=== PATIENT | female | born 1945 | race Caucasian/White ===

== ENCOUNTER 2016-09-01 08:49 | Observation (INO) | payer OTHER ==
--- NOTE | 2016-09-01 09:02 | CPEKG ---
Heart Rate: 72 RR Interval: 833 P-R Interval: 176 QRSD Interval: 90 QT Interval: 432 QTC Interval: 473 P [place]: 75 QRS [place]: -3 T Wave [place]: 23 EKG Severity - NORMAL ECG - EKG Impression: SINUS RHYTHM Electronically Signed By: Pritesh Peters 01-Sep-2016 16:46:21
[2016-09-01] MEDS ORDERED: ASPIRIN 81 MG CHEWABLE TAB PO ONE (09:20)
[2016-09-01 09:25] LABS: % IMMATURE GRANULYOCYTES 0.5 % (0.0-1.1); ABSOLUTE IMMATURE GRANULOCYTES 0.05 10^3/uL (0.00-0.10); ADD DIFF? NO; ADD MORPH? NO; ADD SCAN? NO; ATYPICAL LYMPHOCYTE FLAG 10 (0-99); FRAGMENT RBC FLAG 0 (0-99); HEMATOCRIT 37.3 % (38.0-47.0); LEFT SHIFT FLG 0 (0-99); LIPEMIA HEMOLYSIS FLAG 90 (0-99); MEAN CELL HEMOGLOBIN CONCENTR. 34.9 g/dL (32.4-36.7); MEAN CELL VOLUME 97.6 fL (81.5-99.8); MEAN PLATELET VOLUME 9.6 fL (8.7-11.7); PLATELET CLUMPS FLAG 0 (0-99); PLATELET COUNT 258 10^3/uL (150-400); RED BLOOD CELL COUNT 3.82 10^6/uL (4.18-5.33); RED CELL DISTRIBUTION WIDTH 12.3 % (11.5-15.2)
--- NOTE | 2016-09-01 09:27 | EDPHY ---
H & P Stated Complaint: fell down stairs Thur - inc. chest tightness/sob since then Time Seen by Provider: 09/01/16 09:05 HPI/ROS: CHIEF COMPLAINT: Chest pain HISTORY OF PRESENT ILLNESS: This is a 70-year-old female with history of hypertension who had a mechanical fall 2 days ago. She was carrying a load of laundry up stairs, lost her balance and fell forward, striking her right side. She then slid down the steps. She is not sure if she hit her head or not. There was no loss of consciousness. She was not initially aware of any injuries but the following morning, yesterday morning, she had right arm pain while attempting to elevate her arm over her head. She also noticed various bruises. Last evening she developed left arm aching pain near her shoulder accompanied by bilateral upper chest pain. The bilateral upper chest pain persists. She also reports some pain across the upper back. She has pain when taking a deep breath. She had one bout of nausea, no vomiting last night. She has not had diaphoresis. She has no known history of coronary artery disease. No family history of coronary artery disease. She notes increased belching today. No abdominal pain. She denies numbness, weakness, bowel or bladder problems. REVIEW OF SYSTEMS: A ten point review of systems was performed and is negative with the exception of the items mentioned in the HPI. Source: Patient Exam Limitations: No limitations - Personal History Current Tetanus Diphtheria and Acellular Pertussis (TDAP): Yes - Medical/Surgical History Hx Asthma: No Hx Chronic Respiratory Disease: No Hx Diabetes: No Hx Cardiac Disease: No Hx Renal Disease: No Hx Cirrhosis: No Hx Alcoholism: No Hx HIV/AIDS: No Hx Splenectomy or Spleen Trauma: No Other PMH: 1. HTN. 2. Reactive airway disease for which she takes medication as needed parentheses rarely). 3. 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 She is accompanied by her daughter today. - Physical Exam Exam: General Appearance: Alert. Vital signs reviewed. Blood pressure 169/110. Eyes: Pupils equal and round, no conjunctival injection, no discharge. Anicteric. ENT, Mouth: Mucous membranes are moist, no oropharyngeal erythema or edema. Neck: No lymphadenopathy, supple. Respiratory: Lungs are clear to auscultation; no wheezes, rales, or rhonchi. Cardiovascular: Regular rate and rhythm; no murmur, rub, or gallop. Gastrointestinal: Abdomen is soft and nontender, no masses or organomegaly, bowel sounds normal. Skin: Warm and dry, no rashes on exposed skin, normal color. Yellow bruising on the anterior left tibial, left medial malleolus, right hip, and left shoulder. Back: Nontender to palpation over the thoracolumbar spine. No CVAT. Extremities: No lower extremity edema, no calf tenderness or swelling. Full active range of motion of both shoulders. Full active range of motion right hip. Full active range of motion left ankle. Neurological: Alert and oriented. Moving all four extremities easily and equally. Facial expressions symmetric. Strength is 5 over 5 bilaterally with testing of all major motor groups. Sensation is intact to light touch over all 4 extremities. Psychiatric: Normal affect. Constitutional: Initial Vital Signs Temperature (C) 36.6 C 09/01/16 09:05 Heart Rate 70 09/01/16 09:05 Respiratory Rate 20 09/01/16 09:05 Blood Pressure 157/100 H 09/01/16 09:05 O2 Sat (%) 97 09/01/16 09:05 O2 Delivery Mode Room Air Allergies/Adverse Reactions: No Known Allergies Allergy (Unverified 01/23/14 17:04) Home Medications: Medication Instructions Recorded Benazepril HCl [Lotensin (*)] 40 mg PO DAILY 09/01/16 Spironolactone [Aldactone 25 MG 50 mg PO DAILY 09/01/16 (*)] Medical Decision Making - Diagnostics EKG Interpretation: 12 lead EKG is interpreted in Trace master View by emergency department physician. Sinus rhythm with no acute ischemic changes. A 2nd EKG was obtained at 9:54 a.m.. Shows sinus rhythm with no acute ischemic changes. Imaging Results: Imaging Impressions Chest X-Ray 09/01/16 09:20 Impression: Left basilar atelectasis/scarring. Imaging: I viewed and interpreted images myself ED Course/Re-evaluation: Patient with fall 2 days ago, striking primarily her left side. She has scattered bruises as result of this fall. Last evening, over 24 hours from her fall, she developed left shoulder aching pain followed by bilateral upper chest pain. She also notes that she has pain when she takes a deep breath. She has a history of hypertension, known known history of coronary artery disease. Her EKG is without ischemic changes. However, her troponin is elevated at 2.03. She continues with chest pain here in the emergency department. She has received aspirin 324 mg. She is being given sublingual nitroglycerin. I have spoken with Dr. vlad Romo and with hospitalist service. She will be admitted to the hospitalist service and will remain NPO with the thought that she might require cardiac catheterization later in the day. To her knowledge, she did not strike her chest when she fell. It is possible that she has a cardiac contusion, but this seems less likely given that her chest pain developed over 24 hours from the time of her fall. I do not find evidence of an infectious process such as pneumonia. On chest x-ray there is no obvious rib injury or pneumothorax. She was re-evaluated at 10:10 a.m., after taking 1 sublingual nitroglycerin. The chest discomfort that she was feeling is not gone, but it is markedly improved. 2nd sublingual nitroglycerin will be given. She is being transferred to [facility] by ambulance. Differential Diagnosis: Chest pain including but not limited to rib injury/fracture, pneumothorax, myocardial ischemia, pulmonary embolus, chest wall pain, pleural inflammation and pulmonary infectious causes. - Data Points Laboratory Results: Laboratory Results 09/01/16 09:13 09/01/16 09:13 09/01/16 09/01/16 09/01/16 09:13 09:13 09:13 WBC 9.57 10^3/uL H 10^3/uL (3.80-9.50) RBC 3.82 10^6/uL L 10^6/uL (4.18-5.33) Hgb 13.0 g/dL g/dL (12.6-16.3) Hct 37.3 % L % (38.0-47.0) MCV 97.6 fL fL (81.5-99.8) MCH 34.0 pg pg (27.9-34.1) MCHC 34.9 g/dL g/dL (32.4-36.7) RDW 12.3 % % (11.5-15.2) Plt Count 258 10^3/uL 10^3/uL (150-400) MPV 9.6 fL fL (8.7-11.7) Neut % (Auto) 58.7 % % (39.3-74.2) Lymph % (Auto) 29.6 % % (15.0-45.0) [place]oca % (Auto) 9.1 % % (4.5-13.0) Eos % (Auto) 1.7 % % (0.6-7.6) Baso % (Auto) 0.4 % % (0.3-1.7) Nucleat RBC Rel Count 0.0 % % (0.0-0.2) Absolute Neuts (auto) 5.62 10^3/uL 10^3/uL (1.70-6.50) Absolute Lymphs (auto) 2.83 10^3/uL 10^3/uL (1.00-3.00) Absolute Monos (auto) 0.87 10^3/uL H 10^3/uL (0.30-0.80) Absolute Eos (auto) 0.16 10^3/uL 10^3/uL (0.03-0.40) Absolute Basos (auto) 0.04 10^3/uL 10^3/uL (0.02-0.10) Absolute Nucleated RBC 0.00 10^3/uL 10^3/uL (0-0.01) Immature Gran % 0.5 % % (0.0-1.1) Immature Gran # 0.05 10^3/uL 10^3/uL (0.00-0.10) D-Dimer 0.48 ug/mLFEU ug/mLFEU (0.00-0.50) Sodium 140 mEq/L mEq/L (134-144) Potassium 3.8 mEq/L mEq/L (3.5-5.2) Chloride 105 mEq/L mEq/L (97-110) Carbon Dioxide 17 mEq/l L mEq/l (22-31) Anion Gap 18 mEq/L H mEq/L (8-16) BUN 15 mg/dL mg/dL (7-23) Creatinine 0.7 mg/dL mg/dL (0.6-1.0) Estimated GFR > 60 Glucose 100 mg/dL mg/dL (70-100) Calcium 9.4 mg/dL mg/dL (8.5-10.4) Troponin I 2.030 ng/mL H ng/mL (0-0.034) Medications Given: Discontinued Medications Aspirin (Aspirin) 324 mg PO EDNOW ONE Stop: 09/01/16 09:21 Last Admin: 09/01/16 09:40 Dose: 324 mg Nitroglycerin (Nitrostat) 0.4 mg SL EDNOW ONE Stop: 09/01/16 09:51 Last Admin: 09/01/16 09:58 Dose: 0.4 mg Departure - Departure Disposition: [facility] Acute Clinical Impression: Chest pain Qualifiers: Chest pain type: precordial pain Qualified Code(s): R07.2 - Precordial pain Condition: Fair
[2016-09-01 09:32] LABS: ANION GAP 18 mEq/L (8-16); CALCIUM 9.4 mg/dL (8.5-10.4); CARBON DIOXIDE 17 mEq/l (22-31); CHLORIDE 105 mEq/L (97-110); CREATININE 0.7 mg/dL (0.6-1.0); GLOMERULAR FILTRATION RATE > 60; GLUCOSE 100 mg/dL (70-100); POTASSIUM 3.8 mEq/L (3.5-5.2); SODIUM 140 mEq/L (134-144)
[2016-09-01] MEDS ORDERED: NITROGLYCERIN 0.4 MG BTL SL ONE (09:50)
--- NOTE | 2016-09-01 09:57 | CPEKG ---
Heart Rate: 76 RR Interval: 789 P-R Interval: 188 QRSD Interval: 88 QT Interval: 428 QTC Interval: 482 P [place]: 77 QRS [place]: -19 T Wave [place]: 40 EKG Severity - OTHERWISE NORMAL ECG - EKG Impression: SINUS RHYTHM EKG Impression: BORDERLINE LEFT AXIS DEVIATION Electronically Signed By: July Win 01-Sep-2016 16:04:36
[2016-09-01] MEDS ORDERED: fentaNYL 100 MCG/2 ML INJ ONE ×2 (11:26→12:29)
[2016-09-01] MEDS ORDERED: MIDAZOLAM 2 MG/2 ML VIAL ONE ×2 (11:26→12:29)
[2016-09-01] MEDS ORDERED: LIDOCAINE 1% 300 MG/30 ML SDV ONE (11:26)
[2016-09-01] MEDS ORDERED: IOPAMIDOL (ISOVUE-370) 150 ML BTL IV ONE (11:27)
[2016-09-01] MEDS ORDERED: BIVALIRUDIN 250 MG/5 ML VIAL IV ONE ×2 (12:31)
[2016-09-01] MEDS ORDERED: ADENOSINE 90 MG/30 ML VIAL IV ONE (12:33)
[2016-09-01] MEDS ORDERED: TEMAZEPAM 15 MG CAP PO PRN (13:22)
[2016-09-01] MEDS ORDERED: NITROGLYCERIN 0.4 MG BTL SL PRN (13:22)
[2016-09-01] MEDS ORDERED: CLOPIDOGREL BISULFATE 75 MG TAB PO ONE (13:22)
[2016-09-01] MEDS ORDERED: ONDANSETRON 4 MG/2 ML VIAL IVP PRN (13:22)
[2016-09-01] MEDS ORDERED: ATROPINE SULFATE 1 MG/10 ML SYR IVP PRN (13:22)
--- NOTE | 2016-09-01 13:24 | CPIP ---
[f rep st] INVASIVE CARDIAC PROCEDURE PROCEDURES PERFORMED: 1. Left heart catheterization. 2. Left ventriculogram. 3. Right and left coronary arteriogram. COMPLICATIONS: None. CONDITION AT THE END OF STUDY: Excellent. INDICATIONS: The patient has chest tightness that is new in onset in the last 24 hours and she has a troponin that is elevated at 2.0. There are no other obvious causes for elevated troponin in this woman such as chronic renal insufficiency, trauma, obvious significant cardiac contusion type of tr auma, or pulmonary embolic disease. She gave informed consent. We went over all the risks and all the options, and she wanted to procee d. FINDINGS: 1. ANGIOGRAPHY:. a. Left main coronary artery is normal. b. Left anterior descending artery has 50% proximal stenosis. IVUS was performed. The first septa l retort loader has a 95% stenosis. It is not a big vessel. I. The diagonal branches have no significant obstructive disease. There appears to possibly be a l ittle bit of aneurysmal dilatation after the 50% LAD stenosis. II. Distal LAD is unremarkable. c. Circumflex has an intimal disease only and is a large codominant vessel. d. The right coronary artery is codominant, is a very large vessel, has excellent flow with no sign ificant obstructive disease present. 2. LEFT HEART CATHETERIZATION: Left ventricular end-diastolic pressure 18 mmHg. 3. LEFT VENTRICULOGRAM:. a. There is anterolateral and inferolateral hypokinesis in the diaphragmatic segment of the inferio r wall. b. The ejection fraction is 55%. c. No significant mitral regurgitation. ASSESSMENT: She has significant proximal left anterior descending artery disease with a significant stenosis of the first septal retort loader. She is going to be evaluated by IVUS by the interventiona l service. The patient was talking when I left the room, although under sedation. She is having no complaints and no complications. /[id number]/MODL
--- NOTE | 2016-09-01 13:48 | CPEKG ---
Heart Rate: 65 RR Interval: 923 P-R Interval: 192 QRSD Interval: 86 QT Interval: 456 QTC Interval: 475 P [place]: 72 QRS [place]: -44 T Wave [place]: 48 EKG Severity - OTHERWISE NORMAL ECG - EKG Impression: SINUS RHYTHM EKG Impression: LEFT AXIS DEVIATION Electronically Signed By: Pritesh Peters 01-Sep-2016 16:46:29
--- NOTE | 2016-09-01 13:49 | GCON ---
[f rep st] CONSULTATION CARDIOLOGY CONSULTATION CHIEF COMPLAINT: Chest pain. HISTORY OF PRESENT ILLNESS: , she was moving a pile of laundry, going upstairs, could not h old onto the rail and slipped, hit on her right side, her shoulder and her hip. Saturday, she woke up in the morning, she had trouble moving her right arm, it was very sore and her chest was sore, but at 4 o'clock Saturday night, she got a different kind of chest pain which felt like a weight was sitti ng on her chest, associated not with shortness of breath, cough, nausea, vomiting, lightheadedness, palpitations, orthopnea, PND, dyspnea on exertion, hemoptysis. She has not had this discomfort before, and it has continued Saturday evening and then this morning, a nd she came to the emergency room. It is not exertional. It comes on its own. It does not go away with rest. It goes away when it wa nts to. Discomfort can be 4/10. It does not radiate. There is no associated lightheadedness, near-syncope, nausea, sweatiness. The patient herself does not have a history of atrial arrhythmias, atrial fibrillation. No history of deep venous thrombosis, pulmonary embolism, cancer diagnosis. No history of rheumatic disease, claudication, or cerebrovascular disease. No history of hot swolle n joints, major rashes. No trauma to the head, neck, or chest, except for the 1 fall. No dysuria, frequency, or pyuria. No fever, chills, or cough. No sputum production. No upper respiratory tract symptoms. Her cardiac risk factors are negative for diabetes, obesity, hyperlipidemia, hyperuricemia, smoking, family history of premature coronary artery disease, or known coronary artery disease. FAMILY HISTORY: She has no family history of premature coronary artery disease. No history of unexplained sudden at a young age. SOCIAL HISTORY: She was born in [place], [place], and lived there until she was 18 years old. 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 She has 2 children who are both healthy. She has been a [employer] for 11 years. She has not been exercising much lately, but normally she exercises on a regular basis. She does not smoke. She does not drink significant amounts of alcohol. REVIEW OF SYSTEMS: A 12-point review of systems negative except as noted above. ALLERGIES: Review the record. MEDICATIONS: Listed in the pharmacy notes. PHYSICAL EXAMINATION: VITAL SIGNS: Blood pressure 110/70, heart rate 66, respiratory rate 12. MEAGAN NT: Pupils equal and reactive. Mucous membranes of the mouth moist. NECK: Supple. CARDIOVASCULA R: S1, S2. Soft systolic murmur, left sternal border. No diastolic murmur. No S3, S4. No rubs. PULMONARY: Rhonchi. No rales, wheezing, or dullness. ABDOMEN: Soft, nontender, without masses. EXTREMITIES: No edema, inflammation, or ulceration. Negative Homans' sign. No tenderness of the calves. SKIN: Age-related changes. NEUROLOGIC: 2 through 12 grossly normal. Motor and sensory i ntact. PSYCH: No obvious anxiety or depression. LABORATORY DATA: The patient's troponin is 2.0. Creatinine and glucose are normal. EKG is abnormal with T-wave inversion in V2. An R wave is present there. ASSESSMENT AND PLAN: 1. Elevated troponin. 2. Chest pain. 3. Trauma to the right shoulder and somewhat to the chest. The patient did have a fall. There was no syncope, no lightheadedness, no palpitations, no chest pa in at the time of the fall. Then, her chest did get sore and the next day, it was harder for her to move her arm, and shoulder was even more sore, but in the evening of the next day, she developed ch est tightness. This tightness is what we are concerned about and may represent an acute coronary sy ndrome. Her troponin is 2, and the patient would fit the criteria for non-STEMI. We will treat her very aggressively medically and bring her to the labor delivery specialist. She understands the risk of cath includes stroke, , limb loss, renal failure, myocardial infarc tion, infection, bleeding, etc. She has been explained by me on 2 occasions all the options which i nclude getting a second opinion, observation, hospitalization, noninvasive testing, medical therapy, doing nothing, nontraditional therapy, etc., and she understands her choices and options, and wishe s to proceed and accepts the risks that occurred to 3 in 1000 people. She certainly may have an acute coronary syndrome with non-STEMI. Her D-dimer is normal, and she mckinney s no symptoms of would go along with a pulmonary embolism. However, pulmonary embolic disease is 1 of the noncardiac causes for elevated troponin. That makes it very worthy to have checked D-dimer a nd make sure everything is okay there. There is nothing to suggest chronic renal insufficiency whic h is another reason for an elevated troponin. The patient could have had an elevated troponin from the trauma of her chest. She could have had a small cardiac contusion, but that is not necessarily the case from the history. So, we will proceed with angiography. Will watch her very closely and keep her in the hospital over night no matter what we find. All her questions have been answered, and we will monitor her closely. If we find no obvious cardoza ry artery disease, we can do an amylase, lipase, and watch for other causes of chest disc omfort. /[id number]/MODL
[2016-09-01] MEDS ORDERED: ACETAMINOPHEN 325 MG TAB PO PRN (14:22)
--- NOTE | 2016-09-01 14:54 | GHP ---
[f rep st] HISTORY AND PHYSICAL DATE OF ADMISSION: 09/01/2016 CHIEF COMPLAINT: Chest pain. HISTORY: The patient is a 70-year-old female who developed chest pain at 4 o'clock yesterday aftern oon. She describes it as a tightness. She took some Motrin and Tylenol and slept all night, but wh en she woke up this morning, chest pain was immediately there, 10/10, severe; and she came to the em ergency room. She was pale and short of breath. She had a recent mechanical fall 2 days ago when she was carrying a large quantity of laundry up the stairs and she fell. She developed right arm and leg injury, as well as her right hip. She was se en at an outside urgent care and had x-rays, and fracture was ruled out. This has caused pain on th e right side, but the pain in the arm today associated with the chest pain was on the left side. PAST MEDICAL HISTORY: 1. Hypertension. 2. Asthma. PAST SURGICAL HISTORY: Appendectomy. MEDICATIONS: Please see computer record for full detailed list. ALLERGIES: No known drug allergies. SOCIAL HISTORY: She quit smoking 40 years ago. She has wine with dinner. She lives alone. REVIEW OF SYSTEMS: Complete review of systems obtained. Review of systems is negative regarding co nstitutional, HEENT, GI, pulmonary, cardiovascular, , hematology, skin, musculoskeletal, endocrine and psych. Pertinent positives and negatives as in HPI. FAMILY HISTORY: Reviewed and noncontributory to presenting complaint. PHYSICAL EXAMINATION: GENERAL: Well-developed, well-nourished female in no acute distress. VITAL SIGNS: Temperature is 36.6, pulse 85, blood pressure 147/97, saturating 95% on room air. EYES: No rmal conjunctivae. Pupils react to light. ENT: Normal ears and nose. Hearing intact. Normal michelle th. Oropharynx moist. NECK: Trachea midline. No thyromegaly. CHEST: Normal respiratory effort. Lungs clear to auscultation bilaterally. CARDIOVASCULAR: Regular rate and rhythm. No murmur. N o extremity edema. ABDOMEN: Soft, nontender. No hepatosplenomegaly. SKIN: Warm, dry, intact. N o rash. MUSCULOSKELETAL: No cyanosis or clubbing. Strength 5/5 upper and lower extremities. NEUR OLOGIC: Cranial nerves intact. Normal sensation to light touch. PSYCHIATRIC: Alert and oriented x3. Normal affect. Normal judgment and insight. Normal memory. LAB: White count 9.57, hematocrit 37.3, platelets 258. Sodium 140, potassium 3.8, chloride 105, bi carb 17, BUN 15, creatinine 0.7, glucose 100. D-dimer is negative. Troponin is 2.03. Chest x-ray is negative. EKG viewed by me. My personal interpretation is normal sinus rhythm, anterior T-wave inversions in V1 and V2. ASSESSMENT AND PLAN: 1. Non-ST elevation myocardial infarction. She does have initial troponin elevation to 2. She has already gone to cardiac catheterization and found to have a 95% occlusion of her 1st septal perfora tor. She had a 50% left anterior descending artery that did not require a stent. Plan will be [facility] management. Start on aspirin. Consider a beta rosa. Check a lipid panel. 2. Right arm and leg injury status post mechanical fall. Will get PT/OT evaluation. Reportedly, o utpatient x-rays were negative. 3. Hypertension. Will continue benazepril. CODE STATUS: Full. ADMISSION STATUS: 1. We will admit to observation. Anticipate discharge home tomorrow. 2. DVT prophylaxis. She is low risk. /[id number]/MODL
--- NOTE | 2016-09-01 18:45 | CPIP ---
[f rep st] INVASIVE CARDIAC PROCEDURE DATE OF PROCEDURE: 09/01/2016 PROCEDURES: 1. Coronary angiography. 2. Fractional flow reserve of left anterior descending coronary artery. INDICATION: Acute coronary syndrome with elevated troponin. ACCESS AND CORONARY ANGIOGRAPHY: Access and coronary angiography was performed by Dr. Reinaldo dover. Coronary angiography was notable for a 50% stenosis involving the proximal left anterior descend ing coronary artery. I was consulted to perform FFR of this lesion to determine clinical significan ce given the patient's presentation. FRACTIONAL FLOW RESERVE OF THE LEFT ANTERIOR DESCENDING CORONARY ARTERY: A 6-Egyptian EBU 3.5 cathete r was advanced to the left main coronary artery and images obtained. The left main coronary artery bifurcated into an LAD and circumflex coronary arteries. The left main coronary artery had mild lum inal irregularities with no stenosis greater than 5%. Left anterior descending coronary artery is d iffusely disease. In the proximal segment, there was a segmental 50% stenosis present. In the mid 1 segment, the vessel appeared to be aneurysmally dilated. In the mid 2 segment, there is a long se gmental 20% stenosis present. The FFR wire was placed in the [id number] left anterior descending coronary artery and position verified by angiography. FFR was obtained after IV adenosine infusion . The FFR of the left anterior descending coronary artery was 0.87, indicating no flow limitation. COMPLICATIONS: None. CONCLUSIONS: 1. Intermediate grade stenosis of the proximal left anterior descending coronary artery that appear s to be 50% in severity. There is no evidence of flow limitation by FFR with an FFR of 0.87. 2. Plan is for medical management. /[id number]/MODL
[2016-09-02 04:38] LABS: % IMMATURE GRANULYOCYTES 0.2 % (0.0-1.1); ABSOLUTE IMMATURE GRANULOCYTES 0.02 10^3/uL (0.00-0.10); ADD DIFF? NO; ADD MORPH? NO; ADD SCAN? NO; ATYPICAL LYMPHOCYTE FLAG 0 (0-99); FRAGMENT RBC FLAG 0 (0-99); HEMATOCRIT 34.8 % (38.0-47.0); HEMOGLOBIN 12.2 g/dL (12.6-16.3); LEFT SHIFT FLG 0 (0-99); LIPEMIA HEMOLYSIS FLAG 90 (0-99); MEAN CELL HEMOGLOBIN 34.4 pg (27.9-34.1); MEAN CELL HEMOGLOBIN CONCENTR. 35.1 g/dL (32.4-36.7); MEAN PLATELET VOLUME 9.9 fL (8.7-11.7); PLATELET CLUMPS FLAG 0 (0-99); PLATELET COUNT 218 10^3/uL (150-400); RED BLOOD CELL COUNT 3.55 10^6/uL (4.18-5.33); RED CELL DISTRIBUTION WIDTH 12.4 % (11.5-15.2)
[2016-09-02 04:57] LABS: ANION GAP 13 mEq/L (8-16); CALCIUM 9.4 mg/dL (8.5-10.4); CARBON DIOXIDE 19 mEq/l (22-31); CHLORIDE 108 mEq/L (97-110); CHOLESTEROL 189 mg/dL (140-220); CHOLESTEROL/HDL RATIO 1.95 RATIO (1.00-4.44); CREATININE 0.7 mg/dL (0.6-1.0); GLOMERULAR FILTRATION RATE > 60; GLUCOSE 86 mg/dL (70-100); HIGH DENSITY LIPOPROTEIN 97 mg/dL (40-85); LDL/HDL RATIO 0.78 RATIO (1.00-3.22); LOW DENSITY LIPOPROTEIN 76 mg/dL (80-100); NON-HIGH DENSITY LIPOPROTEIN 92 mg/dL (90-129); POTASSIUM 4.1 mEq/L (3.5-5.2); SODIUM 140 mEq/L (134-144); TRIGLYCERIDE 80 mg/dL (35-135); VERY LOW DENSITY LIPOPROTEINS 16 mg/dL (8-25)
--- NOTE | 2016-09-02 07:44 | CPEKG ---
Heart Rate: 74 RR Interval: 811 P-R Interval: 184 QRSD Interval: 88 QT Interval: 428 QTC Interval: 475 P [place]: 70 QRS [place]: -74 T Wave [place]: 95 EKG Severity - ABNORMAL ECG - EKG Impression: SINUS RHYTHM EKG Impression: LEFT ANTERIOR FASCICULAR BLOCK EKG Impression: NONSPECIFIC T ABNORMALITIES, LATERAL LEADS Electronically Signed By: Pritesh Peters 02-Sep-2016 21:28:25
--- NOTE | 2016-09-02 08:56 | ECHO ---
[id number] + + [address] : : [place] [address] : : [phone] + + Adult Echocardiographic Report + -----+ :Name: JUANITA ABDALLA DStudy Date: 09/01/2016 01:45 PM BP: 125/79 mmHg : : Hospital Admission Number: [id number] : :: 1945 Gender: Female Height: 61 in : :Age: 70 yrs Race: WH Weight: 125 lb : :Reason For Study: S/P cath : : BSA: 1.5 me ters2: :History: chest pain : + -----+ MMode/2D Measurements \T\ Calculations IVSd: 0.83 cm RVDd: 2.4 cm FS: 29.8 % Ao root diam: LVPWd: 0.91 cm LVIDd: 3.8 cm EDV(Teich): 2.8 cm LVIDs: 2.7 cm 63.2 ml ESV(Teich): 26.8 ml EF(Teich): 57.6 % LVLd ap4: 7.1 cm SV(MOD-sp4): EDV(MOD-sp4): 35.0 ml 64.0 ml LVLs ap4: 6.1 cm ESV(MOD-sp4): 29.0 ml EF(MOD-sp4): 54.7 % Normal Measurement Values: + + :LVIDd (3.5-5.7cm) IVSd (0.6-1.1cm) LVPWd (0.6-1.1cm) Aortic Root (2.0-3.7cm)Left Atrium (1.5-4.0cm): :LV Vol(d) (76-115ml) LV Vol(s) (29-48ml) Ejec Fraction (50-65%)PV Davidson (0.6- 1.2m/s) TV Davidson (0.4-1.0m/s) : :MV E Davidson (0.8-1.0m/s)MV A [place] (0.3-1.0m/s)LVOT [place] (0.7-1.2m/s) Asc Ao Davidson ( 0.9-1.8m/s) : + + Doppler Measurements \T\ Calculations MV E max davidson: Ao V2 max: LV V1 max: PA V2 max: 85.9 cm/sec 92.3 cm/sec 62.5 cm/sec 39.8 cm/sec MV A max davidson: Ao max PG: LV V1 max PG: PA max P.4 cm/sec 3.4 mmHg 1.6 mmHg 0.63 mmHg MV E/A: 1.8 MV dec time: 0.20 sec Left Ventricle The left ventricle is normal in size and function. There is normal left ventricular wall thickness. Ejection Fraction = 55%. Two small areas of hypokinesis; mid anteroseptal and mid inferolateral. Right Ventricle The right ventricle is normal in size and function. Atria The left atrial size is normal. Right atrial size is normal. Mitral Valve The mitral valve is normal in structure and function. There is no mitral valve stenosis. There is mild mitral regurgitation. Tricuspid Valve The tricuspid valve is normal in structure and function. There is no tricuspid stenosis. There is trace tricuspid regurgitation. Aortic Valve The aortic valve is trileaflet. There is no aortic stenosis. There is no aortic insufficiency. Pulmonic Valve The pulmonic valve is not well visualized. Great Vessels The aortic root is normal size. Pericardium/Pleural There is no pericardial effusion. Conclusion A two-dimensional transthoracic echocardiogram with M-mode and Doppler was performed. The left ventricle is normal in size and function. Ejection Fraction = 55%. Two small areas of hypokinesis; mid anteroseptal and mid inferolateral. There is mild mitral regurgitation. There is trace tricuspid regurgitation. Final Reading Physician: Fredrick Allen signed on 09/02/2016 08:55 AM Ordering Physician: Janet Cruz Referring Physician: Reinaldo Romo MD Performed By: Leanne Hernandes
[2016-09-02] MEDS ORDERED: BENAZEPRIL HCL 20 MG TAB PO SCH (09:00)
[2016-09-02] MEDS ORDERED: SPIRONOLACTONE 25 MG TAB PO SCH (09:00)
[2016-09-02] MEDS ORDERED: ASPIRIN EC 325 MG TAB PO SCH (09:00)
[2016-09-02] MEDS ORDERED: CLOPIDOGREL BISULFATE 75 MG TAB PO SCH (09:00)
--- NOTE | 2016-09-02 09:25 | SOAPPROG ---
NATAL[facility] Progress Note Assessment/Plan: Assessment: 1. Non ST segment elevation CT 2. Dyslipidemia 3. Chest pain She is feeling well today. 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 She has preserved LV systolic function with some diaphragmatic and anterolateral hypokinesis. Left ventricular chamber dimension is normal. She is going to be discharged on aspirin Plavix a statin and bisoprolol 2.5 mg at bedtime. She will see a nurse practitioner in my office next week and see me in the office a week later. She needs to go to cardiac rehabilitation. I have answered all her questions. Her prognosis is quite good. Would plan to leave her on Plavix for 1 year. Did get a chance to talk to her daughter yesterday in person and I answered all her questions. Plan: 09/02/16 09:23 Subjective: She is feeling well today. She has no fevers chills cough No nausea Her medicines are acceptable. She is walking about She is having no chest pain or chest tightness She is not short of breath She has no sputum production. Objective: Vital Signs Temp Pulse Resp BP Pulse Ox 36.6 C 76 16 125/84 H 94 09/02/16 04:24 09/02/16 04:24 09/02/16 04:24 09/02/16 04:24 09/02/16 04:24 Laboratory Results 09/02/16 03:54 09/02/16 03:54 09/01/16 09/02/16 09/03/16 05:59 05:59 05:59 Intake Total 900 Balance 900 Selected Entries 09/02/16 09/02/16 03:22 04:24 Heart Rate 51 L 76 Respiratory 16 Rate O2 Sat (%) 94 Blood Pressure 150/84 H 125/84 H Mean Arterial 106 H 97 Pressure (MAP) Laboratory Tests 09/01/16 09/01/16 09/02/16 09:13 18:12 00:20 WBC RBC Hgb Hct MCH Plt Count Glucose Troponin I 2.030 H 2.280 H 2.420 H Cholesterol LDL Cholesterol, Calc HDL Cholesterol 09/02/16 09/02/16 03:54 03:54 WBC 8.04 RBC 3.55 L Hgb 12.2 L Hct 34.8 L MCH 34.4 H Plt Count 218 Glucose 86 Troponin I Cholesterol 189 LDL Cholesterol, Calc 76 L HDL Cholesterol 97 H Physical Exam - Physical Exam General Appearance: alert, no apparent distress Respiratory: lungs clear Cardiac/Chest: regular rate, rhythm Skin: normal color Neuro/Psych: alert, normal mood/affect ICD10 Worksheet Patient Problems: Problems Problem Status Onset Chest pain Acute
[2016-09-02 09:52] VITALS: BP 105/71; PULSE 85; RESP 14; TEMP 97.7; O2SAT 93
--- NOTE | 2016-09-02 20:21 | GDS ---
[f rep st] DISCHARGE SUMMARY DISCHARGE DIAGNOSES: 1. Non ST-elevation myocardial infarction. 2. Hypertension. HISTORY: The patient is a 70-year-old female who developed chest pain. Initial troponin was 2. Katie gordillo was brought to the cardiac catheterization lab and was found to have a first septal brush polisher off her LAD with 95% stenosis. This is likely the cause of her ST-elevation [place]. Incidentally noted cely dover also a 50% proximal LAD stenosis. For this, she underwent fractional flow reserve intravascular u ltrasound showing that the stenosis was only intermediate and 50% severity was confirmed. No stent was placed, but she will need medical management. DISCHARGE MEDICATIONS: Please see computer record for full detailed list. New medications: 1. Aspirin 325 mg p.o. daily. 2. Plavix 75 mg p.o. daily. 3. Bisoprolol 2.5 mg p.o. at bedtime. 4. Atorvastatin 40 mg p.o. daily. DISCHARGE INSTRUCTIONS: Follow up with Dr. Reinaldo Romo in 1 week. Patient was seen and examined by me the day of discharge. /[id number]/MODL
== END 2016-09-02 12:16 | disposition home or self-care (01) ==
LOC: CED 08:49 → CEDHOLD 10:05 → F2W 11:18
PROVIDERS: ADMIT Internal Medicine; ATTEND Internal Medicine
PROC: 4A1335C Monitoring of Arterial Flow, Coronary, Percutaneous Approach (ICD-10-PCS; principal; 2016-09-01 13:19)
PROC: B2151ZZ Fluoroscopy of Left Heart using Low Osmolar Contrast (ICD-10-PCS; principal; 2016-09-01 13:19)
PROC: B2111ZZ Fluoroscopy of Multiple Coronary Arteries using Low Osmolar Contrast (ICD-10-PCS; principal; 2016-09-01 13:19)
PROC: 4A023N7 Measurement of Cardiac Sampling and Pressure, Left Heart, Percutaneous Approach (ICD-10-PCS; principal; 2016-09-01 13:19)
DX: I21.4 Non-ST elevation (NSTEMI) myocardial infarction (principal); I25.10 Atherosclerotic heart disease of native coronary artery without angina pectoris; S49.91XA Unspecified injury of right shoulder and upper arm, initial encounter; S79.911A Unspecified injury of right hip, initial encounter; I10 Essential (primary) hypertension; E78.5 Hyperlipidemia, unspecified; J45.909 Unspecified asthma, uncomplicated; W10.8XXA Fall (on) (from) other stairs and steps, initial encounter; Y92.019 Unspecified place in single-family (private) house as the place of occurrence of the external cause; Y93.E2 Activity, laundry; Z87.891 Personal history of nicotine dependence
CPT/HCPCS: 71020; 93005; 93306; 93458; 93571; 97161; 97165; C1760; C1769; C1887; G0378; G8978; G8979; G8980; G8987; G8988; G8989; J0153; J0583; J1644; J2250; J3010; Q9967; 80048-PO; 84484-PO; 85025-PO; 85378-PO

== ENCOUNTER 2016-10-12 16:00 | Emergency (ER) | payer OTHER ==
--- NOTE | 2016-10-12 16:13 | EDPHY ---
H & P Stated Complaint: ache in left arm, worried about blood pressure Time Seen by Provider: 10/12/16 16:09 HPI/ROS: 71-year-old female presents complaining of left upper arm pain that began earlier today she believes about when she woke up, and continued throughout the day seemed to worsen while she was at the [facility]. She is concerned because she has a recent history of [place] in August. She denies chest pain, shortness of breath, nausea vomiting diaphoresis. Risk factors include hypertension and prior history of coronary artery disease. Review of systems As per HPI General no fever no chills no weakness HEENT no eye pain no eye discharge. No eye redness, no sore throat Respiratory no cough, no shortness of breath Cardiac no chest pain, no peripheral edema GI no abdominal pain, no diarrhea, no constipation, no nausea, no vomiting no flank pain, no hematuria, no dysuria Musculoskeletal positive myalgias, no joint pain Heme no easy bruising, no easy bleeding Endo no polyuria, no polydipsia Skin no rashes, no pruritus Neuro no syncope, no dizziness, no headaches Psych is no suicidal ideation, no homicidal ideation Source: Patient Exam Limitations: No limitations - Personal History Current Tetanus/Diphtheria Vaccine: Yes - Medical/Surgical History Hx Asthma: No Hx Chronic Respiratory Disease: No Hx Diabetes: No Hx Cardiac Disease: Yes Hx Renal Disease: No Hx Cirrhosis: No Hx Alcoholism: No Hx HIV/AIDS: No Hx Splenectomy or Spleen Trauma: No Other PMH: 1. HTN. 2. Reactive airway disease for which she takes medication as needed parentheses rarely). 3. Appendectomy. [place] August 2014 - Family History Significant Family History: No pertinent family hx - Social History Smoking Status: Never smoked Alcohol Use: Rarely Drug Use: None - Physical Exam Exam: 71-year-old female alert and oriented no acute distress nontoxic appearance afebrile HEENT atraumatic normocephalic, extraocular muscles intact, anicteric Oropharynx negative for erythema negative exudate, tolerating her own secretions Neck supple no meningismus Lungs clear to auscultation bilaterally Heart regular rate and rhythm without murmur rub or gallop Abdomen nondistended normoactive bowel sounds soft nontender Back no CVA tenderness, no step-offs, no spinal tenderness Extremities no cyanosis clubbing or edema Neuro alert and oriented, no focal deficits Constitutional: Initial Vital Signs Temperature (C) 36.8 C 10/12/16 16:03 Heart Rate 97 10/12/16 16:03 Respiratory Rate 18 10/12/16 16:03 Blood Pressure 184/104 H 10/12/16 16:03 O2 Sat (%) 95 10/12/16 16:03 O2 Delivery Mode Nasal Cannula O2 (L/minute) 2 Allergies/Adverse Reactions: codeine Allergy (Verified 10/12/16 16:07) Home Medications: Medication Instructions Recorded Benazepril HCl [Lotensin (*)] 40 mg PO DAILY 09/01/16 Spironolactone [Aldactone 25 MG 50 mg PO DAILY 09/01/16 (*)] Aspirin EC [Aspirin EC 325 mg (*)] 325 mg PO DAILY #30 tab 09/02/16 LORazepam 10/12/16 Medical Decision Making - Diagnostics Imaging Results: Imaging Impressions Chest X-Ray 10/12/16 16:22 Impression: Normal chest. ED Course/Re-evaluation: Patient seen and evaluated for left upper arm pain of approximately 8 hours duration.\ Currently has resolved. Differential diagnosis Myalgia, anginal equivalent, myocardial infarction EKG-normal sinus rhythm with left anterior fascicular block unchanged from prior No ischemic changes Chest x-ray normal Labs Troponin negative x2, 0 our and 2 hour CPK normal CBC CMP within normal limits Impression Left upper arm pain, resolved, possibly secondary to stress No evidence for anginal equivalent or ischemic changes Plan Discharge home Follow-up primary care physician Continue current medicines Return as needed - Data Points Laboratory Results: Laboratory Results 10/12/16 16:35 10/12/16 16:35 10/12/16 10/12/16 10/12/16 18:25 16:35 16:35 WBC 8.15 10^3/uL 10^3/uL (3.80-9.50) RBC 4.05 10^6/uL L 10^6/uL (4.18-5.33) Hgb 13.4 g/dL g/dL (12.6-16.3) Hct 38.9 % % (38.0-47.0) MCV 96.0 fL fL (81.5-99.8) MCH 33.1 pg pg (27.9-34.1) MCHC 34.4 g/dL g/dL (32.4-36.7) RDW 12.1 % % (11.5-15.2) Plt Count 299 10^3/uL 10^3/uL (150-400) MPV 9.5 fL fL (8.7-11.7) Neut % (Auto) 54.5 % % (39.3-74.2) Lymph % (Auto) 33.3 % % (15.0-45.0) [place] % (Auto) 9.4 % % (4.5-13.0) Eos % (Auto) 2.1 % % (0.6-7.6) Baso % (Auto) 0.6 % % (0.3-1.7) Nucleat RBC Rel Count 0.0 % % (0.0-0.2) Absolute Neuts (auto) 4.44 10^3/uL 10^3/uL (1.70-6.50) Absolute Lymphs (auto) 2.71 10^3/uL 10^3/uL (1.00-3.00) Absolute Monos (auto) 0.77 10^3/uL 10^3/uL (0.30-0.80) Absolute Eos (auto) 0.17 10^3/uL 10^3/uL (0.03-0.40) Absolute Basos (auto) 0.05 10^3/uL 10^3/uL (0.02-0.10) Absolute Nucleated RBC 0.00 10^3/uL 10^3/uL (0-0.01) Immature Gran % 0.1 % % (0.0-1.1) Immature Gran # 0.01 10^3/uL 10^3/uL (0.00-0.10) Sodium 137 mEq/L mEq/L (134-144) Potassium 4.6 mEq/L mEq/L (3.5-5.2) Chloride 100 mEq/L mEq/L (97-110) Carbon Dioxide 20 mEq/l L mEq/l (22-31) Anion Gap 17 mEq/L H mEq/L (8-16) BUN 12 mg/dL mg/dL (7-23) Creatinine 0.6 mg/dL mg/dL (0.6-1.0) Estimated GFR > 60 Glucose 99 mg/dL mg/dL (70-100) Calcium 9.8 mg/dL mg/dL (8.5-10.4) Total Bilirubin 0.8 mg/dL mg/dL (0.1-1.4) AST 34 IU/L IU/L (14-46) ALT 43 IU/L IU/L (9-52) Alkaline Phosphatase 67 IU/L IU/L (38-126) Creatine Kinase 36 IU/L IU/L (0-156) Troponin I < 0.012 ng/mL ng/mL < 0.012 ng/mL ng/mL (0.000-0.034) (0.000-0.034) Total Protein 8.0 g/dL g/dL (6.3-8.2) Albumin 4.9 g/dL g/dL (3.5-5.0) Medications Given: Discontinued Medications Aspirin (Aspirin) 324 mg PO EDNOW ONE Stop: 10/12/16 16:21 Last Admin: 10/12/16 16:41 Dose: 324 mg Nitroglycerin (Nitrostat) 0.4 mg SL EDNOW ONE Stop: 10/12/16 16:22 Last Admin: 10/12/16 16:42 Dose: 0.4 mg Departure - Departure Disposition: Home, Routine, Self-Care Clinical Impression: Left upper arm pain Condition: Good Instructions: Arm Pain (ED) Referrals: Yolie Kaur MD [Primary Care Provider] - As per Instructions
--- NOTE | 2016-10-12 16:17 | CPEKG ---
Heart Rate: 88 RR Interval: 682 P-R Interval: 176 QRSD Interval: 82 QT Interval: 380 QTC Interval: 460 P [place]: 75 QRS [place]: -59 T Wave [place]: 50 EKG Severity - ABNORMAL ECG - EKG Impression: SINUS RHYTHM EKG Impression: LAD, CONSIDER LEFT ANTERIOR FASCICULAR BLOCK Electronically Signed By: Davin Chavez 14-Oct-2016 10:37:25
[2016-10-12] MEDS ORDERED: ASPIRIN 81 MG CHEWABLE TAB PO ONE (16:20)
[2016-10-12] MEDS ORDERED: NITROGLYCERIN 0.4 MG BTL SL ONE (16:21)
[2016-10-12 16:42] LABS: % IMMATURE GRANULYOCYTES 0.1 % (0.0-1.1); ABSOLUTE IMMATURE GRANULOCYTES 0.01 10^3/uL (0.00-0.10); ADD DIFF? NO; ADD MORPH? NO; ADD SCAN? NO; ATYPICAL LYMPHOCYTE FLAG 0 (0-99); FRAGMENT RBC FLAG 0 (0-99); HEMATOCRIT 38.9 % (38.0-47.0); HEMOGLOBIN 13.4 g/dL (12.6-16.3); LEFT SHIFT FLG 0 (0-99); LIPEMIA HEMOLYSIS FLAG 90 (0-99); MEAN CELL HEMOGLOBIN 33.1 pg (27.9-34.1); MEAN CELL HEMOGLOBIN CONCENTR. 34.4 g/dL (32.4-36.7); MEAN PLATELET VOLUME 9.5 fL (8.7-11.7); PLATELET CLUMPS FLAG 0 (0-99); PLATELET COUNT 299 10^3/uL (150-400); RED BLOOD CELL COUNT 4.05 10^6/uL (4.18-5.33); RED CELL DISTRIBUTION WIDTH 12.1 % (11.5-15.2)
[2016-10-12 16:59] LABS: ALANINE AMINOTRANSFERASE 43 IU/L (9-52); ALBUMIN 4.9 g/dL (3.5-5.0); ALKALINE PHOSPHATASE 67 IU/L (38-126); ANION GAP 17 mEq/L (8-16); ASPARTATE AMINOTRANSFERASE 34 IU/L (14-46); BILIRUBIN,TOTAL 0.8 mg/dL (0.1-1.4); CALCIUM 9.8 mg/dL (8.5-10.4); CARBON DIOXIDE 20 mEq/l (22-31); CHLORIDE 100 mEq/L (97-110); CREATININE 0.6 mg/dL (0.6-1.0); GLOMERULAR FILTRATION RATE > 60; GLUCOSE 99 mg/dL (70-100); POTASSIUM 4.6 mEq/L (3.5-5.2); SODIUM 137 mEq/L (134-144)
[2016-10-12 17:08] LABS: TROPONIN I < 0.012 ng/mL (0.000-0.034)
[2016-10-12 19:15] VITALS: BP 148/94; PULSE 83; RESP 20; TEMP 97.9; O2SAT 95
== END 2016-10-12 19:14 | disposition home or self-care (01) ==
LOC: CED 16:00
DX: M79.622 Pain in left upper arm (principal); I10 Essential (primary) hypertension; I25.2 Old myocardial infarction; Z79.82 Long term (current) use of aspirin
CPT/HCPCS: 71020-PO; 80053-PO; 82550-PO; 84484-PO; 85025-PO

== ENCOUNTER 2017-05-25 21:39 | Emergency (ER) | payer OTHER ==
--- NOTE | 2017-05-25 21:57 | CPEKG ---
Heart Rate: 77 RR Interval: 779 P-R Interval: 184 QRSD Interval: 90 QT Interval: 404 QTC Interval: 458 P [place]: 70 QRS [place]: -45 T Wave [place]: 35 EKG Severity - ABNORMAL ECG - EKG Impression: SINUS RHYTHM EKG Impression: LAD, CONSIDER LEFT ANTERIOR FASCICULAR BLOCK Electronically Signed By: Maxx Malave 25-May-2017 22:23:29
[2017-05-25] MEDS ORDERED: ASPIRIN 81 MG CHEWABLE TAB PO ONE (22:05)
--- NOTE | 2017-05-25 22:12 | EDPHY ---
H & P Stated Complaint: HTN X 1 DAY WITH CHEST PRESSURE Time Seen by Provider: 05/25/17 21:46 HPI/ROS: Chief Complaint: Chest discomfort, hypertension HPI: 71-year-old woman has a history of a non STEMI last August began having some substernal chest discomfort at 4 o'clock this afternoon. Patient states that felt like"indigestion on steroids". It did not feel like the chest tightness she had in her upper chest when she had her non STEMI. At worst is a 4 to 5/10. Pain stopped about an hour ago. Patient noted that while she was having the pain her blood pressure was elevated. She checked it several times and each time it seemed to be higher. No leg pain or swelling. She was doing a crossword puzzle when the pain started. There are no aggravating or alleviating factors. No shortness of breath. No recent travel. Pain was not pleuritic. ROS: 10 point Review of Systems is negative except as noted in the HPI. PMH: Non STEMI, hypertension Social History: No smoking, no alcohol, no recreational drug use Family History: non-contributory Physical Exam: Gen: Awake, Alert, No Distress HEENT: Nose: no rhinorrhea Eyes: PERRLA, EOMI Mouth: Moist mucosa Neck: Supple, no JVD Chest: nontender, lungs clear to auscultation Heart: S1, S2 normal, no murmur Abd: Soft, non-tender, no guarding Back: no CVA tenderness, no midline tenderness Ext: no edema, non-tender Skin: no rash Neuro: CN II-XII intact, Sensation grossly intact, Strength 5/5 in bilateral upper and lower extremities - Medical/Surgical History Hx Asthma: No Hx Chronic Respiratory Disease: No Hx Diabetes: No Hx Cardiac Disease: Yes Hx Renal Disease: No Hx Cirrhosis: No Hx Alcoholism: No Hx HIV/AIDS: No Hx Splenectomy or Spleen Trauma: No Other PMH: 1. HTN. 2. Reactive airway disease for which she takes medication as needed parentheses rarely). 3. Appendectomy. [place] August 2014 - Social History Smoking Status: Never smoked Constitutional: Initial Vital Signs Temperature (C) 36.7 C 05/25/17 21:46 Heart Rate 84 05/25/17 21:46 Respiratory Rate 16 05/25/17 21:46 Blood Pressure 182/106 H 05/25/17 21:46 O2 Sat (%) 97 05/25/17 21:46 O2 Delivery Mode Room Air Allergies/Adverse Reactions: codeine Allergy (Verified 10/12/16 16:07) Home Medications: Medication Instructions Recorded Benazepril HCl [Lotensin (*)] 40 mg PO DAILY 09/01/16 Spironolactone [Aldactone 25 MG 50 mg PO DAILY 09/01/16 (*)] Aspirin EC [Aspirin EC 325 mg (*)] 325 mg PO DAILY #30 tab 09/02/16 LORazepam 10/12/16 Lopressor 25 mg (*) 05/25/17 Medical Decision Making - Diagnostics EKG Interpretation: ECG time 9:55 p.m.. Sinus rhythm with a rate of 77. There is a left axis deviation. Normal intervals, no acute ST or T-wave changes, there is a left anterior fascicular block. ECG is unchanged from 1 from 10/12/2016. ED Course/Re-evaluation: ECG is normal. Troponin is negative. After over 6 hr expected least to see some changes this or truly acute coronary syndrome. I suspect is likely gastrointestinal in nature. The patient is now comfortable. 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 She has been given Pepcid orally in the emergency department. - Data Points Laboratory Results: Laboratory Results 05/25/17 22:15 05/25/17 22:15 05/25/17 05/25/17 22:15 22:15 WBC 6.74 10^3/uL 10^3/uL (3.80-9.50) RBC 4.51 10^6/uL 10^6/uL (4.18-5.33) Hgb 14.7 g/dL g/dL (12.6-16.3) Hct 43.6 % % (38.0-47.0) MCV 96.7 fL fL (81.5-99.8) MCH 32.6 pg pg (27.9-34.1) MCHC 33.7 g/dL g/dL (32.4-36.7) RDW 13.1 % % (11.5-15.2) Plt Count 264 10^3/uL 10^3/uL (150-400) MPV 9.7 fL fL (8.7-11.7) Neut % (Auto) 41.3 % % (39.3-74.2) Lymph % (Auto) 41.2 % % (15.0-45.0) [place] % (Auto) 11.6 % % (4.5-13.0) Eos % (Auto) 4.6 % % (0.6-7.6) Baso % (Auto) 1.0 % % (0.3-1.7) Nucleat RBC Rel Count 0.0 % % (0.0-0.2) Absolute Neuts (auto) 2.78 10^3/uL 10^3/uL (1.70-6.50) Absolute Lymphs (auto) 2.78 10^3/uL 10^3/uL (1.00-3.00) Absolute Monos (auto) 0.78 10^3/uL 10^3/uL (0.30-0.80) Absolute Eos (auto) 0.31 10^3/uL 10^3/uL (0.03-0.40) Absolute Basos (auto) 0.07 10^3/uL 10^3/uL (0.02-0.10) Absolute Nucleated RBC 0.00 10^3/uL 10^3/uL (0-0.01) Immature Gran % 0.3 % % (0.0-1.1) Immature Gran # 0.02 10^3/uL 10^3/uL (0.00-0.10) Sodium 138 mEq/L mEq/L (135-145) Potassium 4.9 mEq/L mEq/L (3.5-5.2) Chloride 102 mEq/L mEq/L (97-110) Carbon Dioxide 21 mEq/l L mEq/l (22-31) Anion Gap 15 mEq/L mEq/L (8-16) BUN 20 mg/dL mg/dL (7-23) Creatinine 0.7 mg/dL mg/dL (0.6-1.0) Estimated GFR > 60 Glucose 99 mg/dL mg/dL (70-100) Calcium 10.0 mg/dL mg/dL (8.5-10.4) Troponin I < 0.012 ng/mL ng/mL (0.000-0.034) Medications Given: Discontinued Medications Aspirin (Aspirin) 324 mg PO EDNOW ONE Stop: 05/25/17 22:06 Last Admin: 05/25/17 22:08 Dose: 324 mg Departure - Departure Disposition: Home, Routine, Self-Care Clinical Impression: Chest pain, Hypertension Condition: Good Instructions: Hypertension (ED), Chest Pain (ED) Additional Instructions: Return to the emergency department for increasing chest pain, shortness of breath, lightheadedness, fainting, or any other concerns. Follow up with primary care physician in 2-3 days for further evaluation. Referrals: Kera Cervantes MD [Medical Doctor] - As per Instructions
[2017-05-25 22:34] LABS: PLATELET COUNT 264 10^3/uL (150-400)
[2017-05-25] MEDS ORDERED: FAMOTIDINE 20 MG TAB ONE (23:00)
[2017-05-25] MEDS ORDERED: FAMOTIDINE 20 MG TAB PO ONE (23:00)
[2017-05-25 23:02] VITALS: BP 156/104
== END 2017-05-25 23:11 | disposition home or self-care (01) ==
LOC: CED 21:39
DX: R07.9 Chest pain, unspecified (principal); I10 Essential (primary) hypertension; J45.909 Unspecified asthma, uncomplicated
CPT/HCPCS: 80048-PO; 84484-PO; 85025-PO